=== PATIENT | male | born 1940 | race Caucasian/White ===

== ENCOUNTER → 2019-10-20 | Outpatient (CLI) | payer MEDICARE | LOC: M.WC 08:30 | DX: T79.8XXD Other early complications of trauma, subsequent encounter (principal); S80.11XD Contusion of right lower leg, subsequent encounter; I25.10 Atherosclerotic heart disease of native coronary artery without angina pectoris; I10 Essential (primary) hypertension; Z85.038 Personal history of other malignant neoplasm of large intestine; Z95.5 Presence of coronary angioplasty implant and graft; Z79.82 Long term (current) use of aspirin; W20.8XXD Other cause of strike by thrown, projected or falling object, subsequent encounter ==